=== PATIENT | male | born 1980 | race Caucasian/White ===

== ENCOUNTER 2023-01-25 14:09 | Emergency (ER) | payer MEDICAID, OTHER ==
[~2023-01-25] VITALS: Ht 167.6 cm; Wt 86.4 kg
[2023-01-25 14:34] VITALS: BP 136/84
== END 2023-01-25 16:49 | disposition home or self-care (01) ==
LOC: ER 14:09
DX: Z11.1 Encounter for screening for respiratory tuberculosis (principal)
CPT/HCPCS: 71046; 99283